=== PATIENT | male | born 1960 | race African-American/Black ===

== ENCOUNTER 2023-09-28 15:45 | Inpatient (IN) | payer OTHER ==
[2023-09-28 18:03] VITALS: BMI 22.7
[2023-09-28] MEDS ORDERED: BENZONATATE 200 MG CAPSULE PO PRN (19:35)
[2023-09-28] MEDS ORDERED: NICOTINE POLACRILEX 2 MG GUM BUC PRN (19:35)
[2023-09-28] MEDS ORDERED: MAG HYDROX/AL HYDROX/SIMETH 30 ML UNIT-DOSE CUP PO PRN (19:35)
[2023-09-28] MEDS ORDERED: MAGNESIUM HYDROX 2400MG/30ML ORAL SUSPENSION 30 ML CUP PO PRN (19:35)
[2023-09-28] MEDS ORDERED: IBUPROFEN 600 MG TABLET (FP) PO PRN (19:35)
[2023-09-28] MEDS ORDERED: ONDANSETRON *ODT* 4 MG TABLET SL PRN (19:35)
[2023-09-28] MEDS ORDERED: hydrOXYzine PAMOATE 25 MG CAPSULE (FP) PO PRN (19:35)
[2023-09-28] MEDS ORDERED: POLYETHYLENE GLYCOL (HEALTHYLAX) 3350 17 GM PACKET PO PRN (19:35)
[2023-09-28] MEDS ORDERED: LOPERAMIDE HCL 2 MG CAPSULE PO PRN (19:35)
[2023-09-28] MEDS ORDERED: BENZOCAINE/MENTHOL (CHLORASEPTIC ) LOZENGE MM PRN (19:35)
[2023-09-28] MEDS ORDERED: guaiFENesin 600 MG TABLET.ER (FP) PO PRN (19:35)
[2023-09-28] MEDS ORDERED: DICYCLOMINE HCL 10 MG CAPSULE PO PRN (19:35)
[2023-09-28] MEDS ORDERED: ACETAMINOPHEN 325 MG TABLET (FP) PO PRN (19:35)
[2023-09-28] MEDS ORDERED: IBUPROFEN 400 MG TABLET (FP) PO PRN (19:35)
[2023-09-28] MEDS ORDERED: P-EPHED 60MG/TRIPROLIDI 2.5MG TABLET PO PRN (19:35)
[2023-09-28] MEDS ORDERED: BISMUTH SUBSALICYLATE 524 MG/30 ML PO PRN (19:35)
[2023-09-28] MEDS ORDERED: THIAMINE HCL 100 MG TABLET (FP) PO SCH (22:00)
[2023-09-28] MEDS ORDERED: MELATONIN 5 MG TABLETS PO SCH (22:00)
[2023-09-28] MEDS: METHOCARBAMOL 500 MG TABLET PO PRN (22:19)
[2023-09-29] MEDS ORDERED: PRENATAL VITAMINS W/ FOLIC ACID TABLET (FP) PO SCH (10:00)
[2023-09-29] MEDS: METHOCARBAMOL 500 MG TABLET PO PRN (10:07)
[2023-09-29 16:02] LABS: CHLORIDE 105 mmol/L (98-107); POTASSIUM 3.6 mmol/L (3.5-5.1); SODIUM 143 mmol/L (136-145)
[2023-09-29 16:06] LABS: HEMATOCRIT 35.4 % (35.4-49); HEMOGLOBIN 11.8 GM/dL (11.7-16.9); MCH 32.7 pg (25.7-33.7); MCHC 33.5 g/dl (32.0-35.9); MEAN CELL VOLUME 97.7 fl (80-96); MEAN PLT VOLUME 10.6 fl (7.5-11.1); PLATELET COUNT 150 10^3/uL (134-434); RBC 3.62 M/mm3 (4.00-5.60); RDW 14.1 % (11.9-15.9); WHITE BLOOD COUNT 5.2 K/mm3 (4.0-10.0)
[2023-09-29 16:14] LABS: CALCIUM 8.4 mg/dL (8.5-10.1); GLUCOSE,RANDOM 143 mg/dL (74-106)
[2023-09-29 16:15] LABS: ALBUMIN 2.9 g/dl (3.4-5.0); ANION GAP 10 mmol/L (4-13); BLOOD UREA NITROGEN 11.6 mg/dL (7-18); CO2 28 mmol/L (21-32)
[2023-09-29 16:18] LABS: CREATININE 0.7 mg/dL (0.55-1.3); SGOT/AST 39 U/L (15-37); SGPT/ALT 45 U/L (13-61)
[2023-09-29 16:20] LABS: BILIRUBIN,TOTAL 0.6 mg/dL (0.2-1); TOT PROT 5.5 g/dl (6.4-8.2)
[2023-09-29 16:21] LABS: ALK PHOS 69 U/L (45-117)
[2023-09-29 16:57] VITALS: BP 102/64; PULSE 87; RESP 18; TEMP 97.6
[2023-09-29] MEDS ORDERED: QUEtiapine FUMARATE 100 MG TABLET (FP) PO SCH (22:00)
== END 2023-09-29 17:52 | disposition other institution (70) | DRG 774 ==
LOC: YASAS 15:45 → Y3N 19:39
PROVIDERS: ADMIT Allergy & Immunology; ATTEND Surgery
PROC: HZ2ZZZZ Detoxification Services for Substance Abuse Treatment (ICD-10-PCS; principal; 2023-09-28)
DX: F10.230 Alcohol dependence with withdrawal, uncomplicated (principal); F14.10 Cocaine abuse, uncomplicated; F12.10 Cannabis abuse, uncomplicated; F17.210 Nicotine dependence, cigarettes, uncomplicated; F25.9 Schizoaffective disorder, unspecified; G47.00 Insomnia, unspecified
CPT/HCPCS: 36415; 80053; 80307; 85027; 86593; 86780; 87635; 93005; 93010

== ENCOUNTER 2023-09-29 15:31 | Inpatient (IN) | payer OTHER ==
[2023-09-29] MEDS ORDERED: POLYETHYLENE GLYCOL (HEALTHYLAX) 3350 17 GM PACKET PO PRN (18:08)
[2023-09-29] MEDS ORDERED: NICOTINE POLACRILEX 2 MG GUM BUC PRN (18:08)
[2023-09-29] MEDS ORDERED: MAG HYDROX/AL HYDROX/SIMETH 30 ML UNIT-DOSE CUP PO PRN (18:08)
[2023-09-29] MEDS ORDERED: ACETAMINOPHEN 325 MG TABLET (FP) PO PRN (18:08)
[2023-09-29] MEDS ORDERED: MAGNESIUM HYDROX 2400MG/30ML ORAL SUSPENSION 30 ML CUP PO PRN (18:08)
[2023-09-29] MEDS ORDERED: guaiFENesin 600 MG TABLET.ER (FP) PO PRN (18:08)
[2023-09-29] MEDS ORDERED: NALOXONE HCL (KLOXXADO) 8 MG SPRAY NS PRN (18:08)
[2023-09-29] MEDS ORDERED: NALOXONE HCL 0.4 MG/ML VIAL IVPUSH PRN (18:08)
[2023-09-29] MEDS ORDERED: IBUPROFEN 400 MG TABLET (FP) PO PRN (18:08)
[2023-09-29] MEDS ORDERED: COLLOIDAL OATMEAL 1 BAR EACH TP PRN (18:08)
[2023-09-29] MEDS ORDERED: LOPERAMIDE HCL 2 MG CAPSULE PO PRN (18:08)
[2023-09-29] MEDS ORDERED: BENZONATATE 200 MG CAPSULE PO PRN (18:08)
[2023-09-29] MEDS ORDERED: BENZOCAINE/MENTHOL (CHLORASEPTIC ) LOZENGE MM PRN (18:08)
[2023-09-29] MEDS ORDERED: ALBUTEROL SO4 HFA INHALER IH PRN (19:19)
[2023-09-29] MEDS: THIAMINE HCL 100 MG TABLET (FP) PO SCH (21:55)
[2023-09-29] MEDS: MELATONIN 5 MG TABLETS PO SCH (21:55)
[2023-09-30] MEDS: PRENATAL VITAMINS W/ FOLIC ACID TABLET (FP) PO SCH (09:33)
[2023-09-30] MEDS: METHOCARBAMOL 500 MG TABLET PO PRN ×2 (09:34→15:27)
[2023-09-30] MEDS: hydrOXYzine PAMOATE 25 MG CAPSULE (FP) PO PRN ×2 (09:34→15:25)
[2023-09-30] MEDS: MELATONIN 5 MG TABLETS PO SCH (21:34)
[2023-09-30] MEDS: THIAMINE HCL 100 MG TABLET (FP) PO SCH (21:34)
[2023-09-30] MEDS: QUEtiapine FUMARATE 300 MG TABLET PO SCH (21:35)
[2023-10-01] MEDS: PRENATAL VITAMINS W/ FOLIC ACID TABLET (FP) PO SCH (10:02)
[2023-10-01] MEDS: hydrOXYzine PAMOATE 25 MG CAPSULE (FP) PO PRN ×2 (10:02→22:07)
[2023-10-01] MEDS: METHOCARBAMOL 500 MG TABLET PO PRN (10:03)
[2023-10-01] MEDS: THIAMINE HCL 100 MG TABLET (FP) PO SCH (22:07)
[2023-10-01] MEDS: QUEtiapine FUMARATE 300 MG TABLET PO SCH (22:07)
[2023-10-01] MEDS: MELATONIN 5 MG TABLETS PO SCH (22:07)
[2023-10-02] MEDS: PRENATAL VITAMINS W/ FOLIC ACID TABLET (FP) PO SCH (09:59)
[2023-10-02] MEDS: hydrOXYzine PAMOATE 25 MG CAPSULE (FP) PO PRN (10:00)
[2023-10-02] MEDS: IBUPROFEN 600 MG TABLET (FP) PO PRN (13:42)
[2023-10-02] MEDS: THIAMINE HCL 100 MG TABLET (FP) PO SCH (21:09)
[2023-10-02] MEDS: MELATONIN 5 MG TABLETS PO SCH (21:09)
[2023-10-02] MEDS: QUEtiapine FUMARATE 300 MG TABLET PO SCH (21:10)
[2023-10-03] MEDS: PRENATAL VITAMINS W/ FOLIC ACID TABLET (FP) PO SCH (09:55)
[2023-10-03] MEDS: MELATONIN 5 MG TABLETS PO SCH (21:33)
[2023-10-03] MEDS: THIAMINE HCL 100 MG TABLET (FP) PO SCH (21:33)
[2023-10-03] MEDS: QUEtiapine FUMARATE 300 MG TABLET PO SCH (21:33)
[2023-10-04] MEDS: PRENATAL VITAMINS W/ FOLIC ACID TABLET (FP) PO SCH (10:03)
[2023-10-04] MEDS: MELATONIN 5 MG TABLETS PO SCH (21:29)
[2023-10-04] MEDS: THIAMINE HCL 100 MG TABLET (FP) PO SCH (21:30)
[2023-10-04] MEDS: QUEtiapine FUMARATE 300 MG TABLET PO SCH (21:30)
[2023-10-04] MEDS: busPIRone HCL 5 MG TABLET PO SCH (22:06)
[2023-10-05] MEDS: PRENATAL VITAMINS W/ FOLIC ACID TABLET (FP) PO SCH (10:04)
[2023-10-05] MEDS: busPIRone HCL 5 MG TABLET PO SCH ×2 (10:30→21:00)
[2023-10-05] MEDS: MELATONIN 5 MG TABLETS PO SCH (20:59)
[2023-10-05] MEDS: QUEtiapine FUMARATE 300 MG TABLET PO SCH (21:00)
[2023-10-05] MEDS: THIAMINE HCL 100 MG TABLET (FP) PO SCH (21:00)
[2023-10-05] MEDS ORDERED: traZODone HCL 100 MG TABLET (FP) PO SCH (22:00)
[2023-10-06] MEDS: PRENATAL VITAMINS W/ FOLIC ACID TABLET (FP) PO SCH (10:04)
[2023-10-06] MEDS: FLUTICASONE PROP 0.05% 16 GM NASAL SPRAY NS SCH (10:05)
[2023-10-06] MEDS: busPIRone HCL 5 MG TABLET PO SCH ×2 (10:05→21:33)
[2023-10-06] MEDS: THIAMINE HCL 100 MG TABLET (FP) PO SCH (21:33)
[2023-10-06] MEDS: QUEtiapine FUMARATE 300 MG TABLET PO SCH (21:33)
[2023-10-06] MEDS: MELATONIN 5 MG TABLETS PO SCH (21:33)
[2023-10-06] MEDS: traZODone HCL 50 MG TABLET (FP) PO SCH (21:34)
[2023-10-07] MEDS: PRENATAL VITAMINS W/ FOLIC ACID TABLET (FP) PO SCH (10:08)
[2023-10-07] MEDS: FLUTICASONE PROP 0.05% 16 GM NASAL SPRAY NS SCH (10:08)
[2023-10-07] MEDS: busPIRone HCL 5 MG TABLET PO SCH ×2 (10:08→21:36)
[2023-10-07] MEDS: MELATONIN 5 MG TABLETS PO SCH (21:36)
[2023-10-07] MEDS: QUEtiapine FUMARATE 300 MG TABLET PO SCH (21:36)
[2023-10-07] MEDS: THIAMINE HCL 100 MG TABLET (FP) PO SCH (21:36)
[2023-10-07] MEDS: traZODone HCL 50 MG TABLET (FP) PO SCH (21:40)
[2023-10-08] MEDS: busPIRone HCL 5 MG TABLET PO SCH ×2 (09:49→21:33)
[2023-10-08] MEDS: PRENATAL VITAMINS W/ FOLIC ACID TABLET (FP) PO SCH (09:49)
[2023-10-08] MEDS: FLUTICASONE PROP 0.05% 16 GM NASAL SPRAY NS SCH (09:50)
[2023-10-08] MEDS: traZODone HCL 50 MG TABLET (FP) PO SCH (21:32)
[2023-10-08] MEDS: MELATONIN 5 MG TABLETS PO SCH (21:33)
[2023-10-08] MEDS: QUEtiapine FUMARATE 300 MG TABLET PO SCH (21:33)
[2023-10-08] MEDS: THIAMINE HCL 100 MG TABLET (FP) PO SCH (21:33)
[2023-10-09] MEDS: busPIRone HCL 5 MG TABLET PO SCH ×2 (09:46→21:26)
[2023-10-09] MEDS: PRENATAL VITAMINS W/ FOLIC ACID TABLET (FP) PO SCH (09:46)
[2023-10-09] MEDS ORDERED: LORATADINE 10 MG TABLET PO SCH (10:00)
[2023-10-09] MEDS: MELATONIN 5 MG TABLETS PO SCH (21:26)
[2023-10-09] MEDS: traZODone HCL 50 MG TABLET (FP) PO SCH (21:26)
[2023-10-09] MEDS: QUEtiapine FUMARATE 300 MG TABLET PO SCH (21:26)
[2023-10-09] MEDS: THIAMINE HCL 100 MG TABLET (FP) PO SCH (21:26)
[2023-10-09] MEDS: FLUTICASONE PROP 0.05% 16 GM NASAL SPRAY NS SCH (21:27)
[2023-10-10] MEDS: PRENATAL VITAMINS W/ FOLIC ACID TABLET (FP) PO SCH (09:47)
[2023-10-10] MEDS: busPIRone HCL 5 MG TABLET PO SCH ×2 (09:48→21:12)
[2023-10-10] MEDS: LORATADINE 10 MG TABLET PO PRN (09:49)
[2023-10-10] MEDS: traZODone HCL 50 MG TABLET (FP) PO SCH (21:12)
[2023-10-10] MEDS: THIAMINE HCL 100 MG TABLET (FP) PO SCH (21:12)
[2023-10-10] MEDS: FLUTICASONE PROP 0.05% 16 GM NASAL SPRAY NS SCH (21:12)
[2023-10-10] MEDS: MELATONIN 5 MG TABLETS PO SCH (21:12)
[2023-10-10] MEDS: QUEtiapine FUMARATE 300 MG TABLET PO SCH (21:12)
[2023-10-11] MEDS: PRENATAL VITAMINS W/ FOLIC ACID TABLET (FP) PO SCH (09:54)
[2023-10-11] MEDS: busPIRone HCL 5 MG TABLET PO SCH ×2 (09:55→21:09)
[2023-10-11] MEDS: traZODone HCL 50 MG TABLET (FP) PO SCH (21:09)
[2023-10-11] MEDS: QUEtiapine FUMARATE 300 MG TABLET PO SCH (21:09)
[2023-10-11] MEDS: THIAMINE HCL 100 MG TABLET (FP) PO SCH (21:09)
[2023-10-11] MEDS: FLUTICASONE PROP 0.05% 16 GM NASAL SPRAY NS SCH (21:09)
[2023-10-11] MEDS: MELATONIN 5 MG TABLETS PO SCH (21:10)
[2023-10-12] MEDS: busPIRone HCL 5 MG TABLET PO SCH ×2 (09:42→21:27)
[2023-10-12] MEDS: PRENATAL VITAMINS W/ FOLIC ACID TABLET (FP) PO SCH (09:42)
[2023-10-12] MEDS: LORATADINE 10 MG TABLET PO PRN (09:43)
[2023-10-12] MEDS ORDERED: ARTIFICIAL TEARS (POLYVINYL ALCOHOL) OPTH DROPS OU PRN (14:22)
[2023-10-12] MEDS: QUEtiapine FUMARATE 300 MG TABLET PO SCH (21:27)
[2023-10-12] MEDS: traZODone HCL 50 MG TABLET (FP) PO SCH (21:27)
[2023-10-12] MEDS: FLUTICASONE PROP 0.05% 16 GM NASAL SPRAY NS SCH (21:28)
[2023-10-12] MEDS: MELATONIN 5 MG TABLETS PO SCH (21:30)
[2023-10-12] MEDS: THIAMINE HCL 100 MG TABLET (FP) PO SCH (21:31)
[2023-10-13] MEDS ORDERED: ERYTHROMYCIN 0.5% OPHTHALMIC OINTMENT 3.5 GM TUBE OS SCH (10:00)
[2023-10-13] MEDS: busPIRone HCL 5 MG TABLET PO SCH ×2 (10:09→21:29)
[2023-10-13] MEDS: ERYTHROMYCIN 0.5% OPHTHALMIC OINTMENT 3.5 GM TUBE OS SCH (10:09)
[2023-10-13] MEDS: PRENATAL VITAMINS W/ FOLIC ACID TABLET (FP) PO SCH (10:09)
[2023-10-13] MEDS: IBUPROFEN 600 MG TABLET (FP) PO PRN (16:19)
[2023-10-13] MEDS: THIAMINE HCL 100 MG TABLET (FP) PO SCH (21:28)
[2023-10-13] MEDS: traZODone HCL 50 MG TABLET (FP) PO SCH (21:28)
[2023-10-13] MEDS: FLUTICASONE PROP 0.05% 16 GM NASAL SPRAY NS SCH (21:29)
[2023-10-13] MEDS: MELATONIN 5 MG TABLETS PO SCH (21:29)
[2023-10-13] MEDS: QUEtiapine FUMARATE 300 MG TABLET PO SCH (21:29)
[2023-10-14 07:03] VITALS: RESP 18
[2023-10-14] MEDS: PRENATAL VITAMINS W/ FOLIC ACID TABLET (FP) PO SCH (10:08)
[2023-10-14] MEDS: busPIRone HCL 5 MG TABLET PO SCH ×2 (10:08→21:30)
[2023-10-14] MEDS: ERYTHROMYCIN 0.5% OPHTHALMIC OINTMENT 3.5 GM TUBE OS SCH (10:08)
[2023-10-14] MEDS: LORATADINE 10 MG TABLET PO PRN (11:13)
[2023-10-14] MEDS: traZODone HCL 50 MG TABLET (FP) PO SCH (21:30)
[2023-10-14] MEDS: QUEtiapine FUMARATE 300 MG TABLET PO SCH (21:30)
[2023-10-14] MEDS: THIAMINE HCL 100 MG TABLET (FP) PO SCH (21:31)
[2023-10-14] MEDS: FLUTICASONE PROP 0.05% 16 GM NASAL SPRAY NS SCH (21:31)
[2023-10-14] MEDS: MELATONIN 5 MG TABLETS PO SCH (21:32)
[2023-10-15 07:02] VITALS: BP 115/78; PULSE 88; TEMP 97
[2023-10-15] MEDS: PRENATAL VITAMINS W/ FOLIC ACID TABLET (FP) PO SCH (09:01)
[2023-10-15] MEDS: ERYTHROMYCIN 0.5% OPHTHALMIC OINTMENT 3.5 GM TUBE OS SCH (09:01)
[2023-10-15] MEDS: busPIRone HCL 5 MG TABLET PO SCH (09:01)
== END 2023-10-15 09:55 | disposition home or self-care (01) | DRG 772 ==
LOC: YASAS 15:31 → Y5N 15:43
PROVIDERS: ADMIT Allergy & Immunology; ATTEND Psychiatry & Neurology Pain Medicine
PROC: HZ42ZZZ Group Counseling for Substance Abuse Treatment, Cognitive-Behavioral (ICD-10-PCS; principal; 2023-09-29)
DX: F10.20 Alcohol dependence, uncomplicated (principal); F17.210 Nicotine dependence, cigarettes, uncomplicated; F25.9 Schizoaffective disorder, unspecified; F32.A Depression, unspecified; R09.81 Nasal congestion
CPT/HCPCS: 82962; 83036

== ENCOUNTER 2023-11-02 18:57 | Inpatient (IN) | payer OTHER ==
[2023-11-02 20:52] VITALS: BMI 24.2
[2023-11-03] MEDS ORDERED: NALOXONE HCL 0.4 MG/ML VIAL IM PRN (04:17)
[2023-11-03] MEDS ORDERED: BISMUTH SUBSALICYLATE 524 MG/30 ML PO PRN (04:17)
[2023-11-03] MEDS ORDERED: ACETAMINOPHEN 325 MG TABLET (FP) PO PRN (04:17)
[2023-11-03] MEDS ORDERED: guaiFENesin 600 MG TABLET.ER (FP) PO PRN (04:17)
[2023-11-03] MEDS ORDERED: LOPERAMIDE HCL 2 MG CAPSULE PO PRN (04:17)
[2023-11-03] MEDS ORDERED: POLYETHYLENE GLYCOL (HEALTHYLAX) 3350 17 GM PACKET PO PRN (04:17)
[2023-11-03] MEDS ORDERED: BENZONATATE 200 MG CAPSULE PO PRN (04:17)
[2023-11-03] MEDS ORDERED: NALOXONE HCL (KLOXXADO) 8 MG SPRAY NS PRN (04:17)
[2023-11-03] MEDS ORDERED: METHOCARBAMOL 500 MG TABLET PO PRN (04:17)
[2023-11-03] MEDS ORDERED: MAG HYDROX/AL HYDROX/SIMETH 30 ML UNIT-DOSE CUP PO PRN (04:17)
[2023-11-03] MEDS ORDERED: ONDANSETRON *ODT* 4 MG TABLET SL PRN (04:17)
[2023-11-03] MEDS ORDERED: BENZOCAINE/MENTHOL (CHLORASEPTIC ) LOZENGE MM PRN (04:17)
[2023-11-03] MEDS ORDERED: MAGNESIUM HYDROX 2400MG/30ML ORAL SUSPENSION 30 ML CUP PO PRN (04:17)
[2023-11-03] MEDS ORDERED: DICYCLOMINE HCL 10 MG CAPSULE PO PRN (04:17)
[2023-11-03] MEDS ORDERED: hydrOXYzine PAMOATE 25 MG CAPSULE (FP) PO PRN (04:17)
[2023-11-03] MEDS ORDERED: chlordiazePOXIDE HCL 25 MG CAPSULE PO PRN (04:22)
[2023-11-03] MEDS: chlordiazePOXIDE HCL 25 MG CAPSULE PO SCH (05:02)
[2023-11-03] MEDS ORDERED: ALBUTEROL SO4 HFA INHALER IH PRN (07:54)
[2023-11-03] MEDS: PRENATAL VITAMINS W/ FOLIC ACID TABLET (FP) PO SCH (10:32)
[2023-11-03] MEDS: FLUTICASONE PROP 0.05% 16 GM NASAL SPRAY NS SCH (10:32)
[2023-11-03] MEDS: busPIRone HCL 5 MG TABLET PO SCH (11:31)
[2023-11-03] MEDS ORDERED: MELATONIN 5 MG TABLETS PO SCH (22:00)
[2023-11-03] MEDS: THIAMINE HCL 100 MG TABLET (FP) PO SCH (22:05)
[2023-11-03] MEDS: QUEtiapine FUMARATE 300 MG TABLET PO SCH (22:05)
[2023-11-04] MEDS: chlordiazePOXIDE HCL 25 MG CAPSULE PO SCH (05:55)
[2023-11-04 09:44] LABS: POTASSIUM 3.9 mmol/L (3.5-5.1)
[2023-11-04 09:53] LABS: BLOOD UREA NITROGEN 10.1 mg/dL (7-18); CALCIUM 8.6 mg/dL (8.5-10.1)
[2023-11-04 09:55] LABS: HEMATOCRIT 35.2 % (35.4-49); HEMOGLOBIN 11.6 GM/dL (11.7-16.9); MCH 32.4 pg (25.7-33.7); MCHC 32.8 g/dl (32.0-35.9); MEAN CELL VOLUME 98.6 fl (80-96); MEAN PLT VOLUME 11.1 fl (7.5-11.1); PLATELET COUNT 135 10^3/uL (134-434); RBC 3.57 M/mm3 (4.00-5.60); RDW 13.8 % (11.9-15.9); WHITE BLOOD COUNT 2.3 K/mm3 (4.0-10.0)
[2023-11-04 09:57] LABS: CREATININE 0.7 mg/dL (0.55-1.3)
[2023-11-04 09:58] LABS: BILIRUBIN,TOTAL 0.7 mg/dL (0.2-1); TOT PROT 5.6 g/dl (6.4-8.2)
[2023-11-04] MEDS: IBUPROFEN 400 MG TABLET (FP) PO PRN (17:29)
[2023-11-05] MEDS ORDERED: chlordiazePOXIDE HCL 10 MG CAPSULE PO PRN
[2023-11-05] MEDS: chlordiazePOXIDE HCL 10 MG CAPSULE PO SCH (06:00)
[2023-11-05] MEDS: LORATADINE 10 MG TABLET PO SCH (10:20)
[2023-11-06] MEDS: chlordiazePOXIDE HCL 10 MG CAPSULE PO SCH (05:48)
[2023-11-06] MEDS: IBUPROFEN 600 MG TABLET (FP) PO PRN (17:17)
[2023-11-07] MEDS: chlordiazePOXIDE HCL 10 MG CAPSULE PO ONE (05:57)
[2023-11-07 06:11] VITALS: RESP 16
[2023-11-07 09:47] VITALS: BP 137/94; PULSE 110; TEMP 97.8
== END 2023-11-07 12:12 | disposition home or self-care (01) | DRG 774 ==
LOC: YASAS 18:57 → Y6N 11-03 04:50
PROVIDERS: ADMIT Allergy & Immunology; ATTEND Surgery
PROC: HZ2ZZZZ Detoxification Services for Substance Abuse Treatment (ICD-10-PCS; principal; 2023-11-03)
DX: F10.230 Alcohol dependence with withdrawal, uncomplicated (principal); F14.20 Cocaine dependence, uncomplicated; F25.9 Schizoaffective disorder, unspecified; F10.282 Alcohol dependence with alcohol-induced sleep disorder; F10.24 Alcohol dependence with alcohol-induced mood disorder; J45.20 Mild intermittent asthma, uncomplicated; J34.89 Other specified disorders of nose and nasal sinuses; Z87.891 Personal history of nicotine dependence
CPT/HCPCS: 36415; 80053; 80307; 85027; 86780; 87635; 87811; 93005; 93010